=== PATIENT | female | born 1975 | race Two or more races ===

== ENCOUNTER 2022-10-07 22:45 | Emergency (ER) | payer OTHER ==
[2022-10-07 23:03] VITALS: BP 124/56; PULSE 86; RESP 17; TEMP 98.7
== END 2022-10-08 01:51 | disposition left against medical advice (07) ==
LOC: JER 22:45
DX: J06.9 Acute upper respiratory infection, unspecified (principal); B97.4 Respiratory syncytial virus as the cause of diseases classified elsewhere
CPT/HCPCS: 99281-25